=== PATIENT | female | born 2000 | race African-American/Black ===

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

== ENCOUNTER → 2024-02-02 | Outpatient (CLI) | payer BC, OTHER, SELFPAY | LOC: M RAD 08:17 | PROVIDERS: ATTEND Physician Assistant | DX: N93.9 Abnormal uterine and vaginal bleeding, unspecified (principal) ==

== ENCOUNTER → 2024-02-11 | Outpatient (CLI) | payer BC ==
[2024-02-11 15:20] LABS: INR 1.18; PROTHROMBIN TIME 14.6 SECONDS (12.5-14.5)
[2024-02-14 23:16] LABS: F8 ACTIVITY FOR F8 PANEL 216 % (56-140); F8 ACTIVITY vWB FOR F8 PANEL 189 % (50-200); F8 ANTIGEN FOR F8 PANEL 253 % (50-200)
== END ==
LOC: M PLALAB 14:25
PROVIDERS: ATTEND Family Medicine
DX: N93.9 Abnormal uterine and vaginal bleeding, unspecified (principal)

== ENCOUNTER → 2024-08-01 | Outpatient (CLI) | payer BC ==
[2024-08-01 08:58] LABS: BASO # 0.1 10^3/uL (0.0-0.2); BASO % 0.8 % (0.0-1.0); EOS # 0.2 10^3/uL (0.0-0.5); EOS % 3.3 % (0.0-3.0); HEMATOCRIT 33.7 % (36.0-47.0); HEMOGLOBIN 11.2 g/dl (12.0-15.5); LYMPH # 2.3 10^3/uL (1.5-5.0); MEAN CORPUSCULAR HEMOGLOBIN 26.3 pg (27.0-33.0); MEAN CORPUSCULAR HGB CONC 33.2 g/dl (32.0-36.5); MEAN CORPUSCULAR VOLUME 79.1 fl (80.0-96.0); MONO # 0.2 10^3/uL (0.0-0.8); MONO % 3.7 % (2.0-8.0); NEUTROPHILS # 3.4 10^3/uL (1.5-8.5); PLATELET COUNT, AUTOMATED 302 10^3/uL (150-450); RED BLOOD COUNT 4.26 10^6/uL (4.00-5.40); WHITE BLOOD COUNT 6.1 10^3/uL (4.0-10.0)
== END ==
LOC: M LAB 08:30
PROVIDERS: ATTEND Internal Medicine Hematology
DX: R79.1 Abnormal coagulation profile (principal)

== ENCOUNTER → 2024-08-04 | Outpatient (CLI) | payer BC ==
[~2024-08-04] MED LIST changes: +ONDA-282 PO
[2024-08-07 15:47] LABS: Factor VIII ACTIVITY,CLOTTING 280 % normal (50-180)
[2024-08-08 04:37] LABS: Act Prt C Resist w/FV Defic 5.1 ratio (>=2.1)
[2024-08-08 13:41] LABS: PROTEIN S AG TOTAL 87 % normal (70-140); Protein S Antigen, Free 125 % normal (50-147)
[2024-08-08 18:08] LABS: FACTOR VIII APTT 22 sec (23-32); RISTOCETIN COFACTOR 346 % normal (42-200); VW FACTOR ANTIGEN > 300 % (50-217)
[2024-08-08 23:58] LABS: APTT LUPUS 27 sec (<=40); DRVVT SCREEN SECONDS 36 sec (<=45); FACTOR V111 ACTIVITY, CLOTTING 280 % normal (50-180)
== END ==
LOC: M LAB 08:24
PROVIDERS: ATTEND Internal Medicine Hematology
DX: R79.1 Abnormal coagulation profile (principal)

== ENCOUNTER 2024-08-05 06:03 | Emergency (ER) | payer BC ==
[~2024-08-05] VITALS: Ht 167.6 cm; Wt 51.7 kg
[~2024-08-05 06:03] MED LIST changes: -ONDA-282 PO
[2024-08-05] MEDS: ONDANSETRON 4MG 2ML VIAL IV STA (06:54)
[2024-08-05] MEDS: NS 1,000 ML IV ONE (06:54)
[2024-08-05 06:56] LABS: BASO % 0.7 % (0.0-1.0); EOS # 0.1 10^3/uL (0.0-0.5); EOS % 2.3 % (0.0-3.0); HEMATOCRIT 35.6 % (36.0-47.0); LYMPH # 1.7 10^3/uL (1.5-5.0); LYMPH % 28.2 % (24.0-44.0); MEAN CORPUSCULAR HEMOGLOBIN 26.4 pg (27.0-33.0); MEAN CORPUSCULAR HGB CONC 33.7 g/dl (32.0-36.5); MEAN CORPUSCULAR VOLUME 78.4 fl (80.0-96.0); MONO # 0.4 10^3/uL (0.0-0.8); NEUTROPHILS # 3.7 10^3/uL (1.5-8.5); NEUTROPHILS % 61.5 % (36.0-66.0); PLATELET COUNT, AUTOMATED 291 10^3/uL (150-450); RED BLOOD COUNT 4.54 10^6/uL (4.00-5.40)
[2024-08-05 07:26] LABS: LIPASE 36 U/L (12-53)
[2024-08-05 07:29] LABS: ALKALINE PHOSPHATASE 54 U/L (35-104); ALT/SGPT 14 U/L (7.0-40); AST/SGOT 11 U/L (<34); BILIRUBIN,DIRECT 0.1 MG/DL (<0.4); BILIRUBIN,TOTAL 0.6 MG/DL (0.3-1.2); BLOOD UREA NITROGEN 5 MG/DL (9-23); CALCIUM LEVEL 9.8 MG/DL (8.5-10.1); CARBON DIOXIDE LEVEL 24 MMOL/L (20-31); CHLORIDE LEVEL 107 MMOL/L (98-107); CREATININE FOR GFR 0.95 MG/DL (0.55-1.30); GLOMERULAR FILTRATION RATE > 60.0 (>60); GLUCOSE, FASTING 106 MG/DL (60-100); SODIUM LEVEL 139 MMOL/L (136-145); TOTAL PROTEIN 7.8 G/DL (5.7-8.2)
[2024-08-05 07:49] LABS: HCG, SERUM QUALITATIVE NEGATIVE (NEGATIVE)
[2024-08-05] MEDS: ACETAMINOPHEN 325 MG TAB PO ONE (09:02)
[2024-08-05] MEDS ORDERED: ONDA-282 PO (09:03)
[2024-08-05 09:09] VITALS: BP 113/79; TEMP 95.9; O2SAT 100
== END 2024-08-05 09:20 | disposition home or self-care (01) ==
LOC: M ED 06:03
DX: R11.2 Nausea with vomiting, unspecified (principal); R19.7 Diarrhea, unspecified; Z79.83 Long term (current) use of bisphosphonates; Z79.899 Other long term (current) drug therapy
CPT/HCPCS: 80048; 80076; 83690; 84703; 85025; 96361; 96374; 99284; J2405